=== PATIENT | female | born 1975 | race Caucasian/White ===

== ENCOUNTER → 2016-07-06 | Outpatient (CLI) | payer OTHER ==
[~2016-07-06] MED LIST: BENADRYL25 MG PO; ENOXAPARIN30 MG/0.1 INJECTION; ENOXAPARIN40 MG/0.1 SUBQ; GAS RELIEF80 MG PO; NOHOMEMEDICATIONS; NORCO 5-325 TA1 EACH PO; TYLENOL WITH CO1 TA1 PO
== END ==
LOC: CAT 09:06
DX: Z13.6 Encounter for screening for cardiovascular disorders (principal)

== ENCOUNTER 2017-06-21 09:15 | Emergency (ER) | payer BC, OTHER ==
[~2017-06-21] VITALS: Ht 162.6 cm; Wt 81.7 kg
[2017-06-21 10:14] LABS: HEMATOCRIT 40.6 % (37.0-47.0); HEMOGLOBIN 13.4 gm/dL (12.0-15.0); MCH 28.2 pg (26.0-34.0); MCHC 33.1 g/dL (28.0-37.0); MCV 85.3 fL (80.0-100.0); RBC 4.76 mil/uL (4.20-5.00); RDW 12.8 % (10.5-14.5); WBC 3.2 thou/uL (4.0-11.0)
[2017-06-21] MEDS ORDERED: AUGMENTIN 875-1 EACH PO (11:29)
[2017-06-21] MEDS ORDERED: NAPROSYN500 MG PO (11:30)
[2017-06-21 11:46] VITALS: BP 108/70
== END 2017-06-21 11:46 | disposition home or self-care (01) ==
LOC: ER 09:15
PROVIDERS: Emergency Medicine
DX: S61.052A Open bite of left thumb without damage to nail, initial encounter (principal); W55.01XA Bitten by cat, initial encounter; Z98.890 Other specified postprocedural states; Z87.891 Personal history of nicotine dependence; Y93.89 Activity, other specified; Y92.89 Other specified places as the place of occurrence of the external cause; Y99.8 Other external cause status

== ENCOUNTER → 2017-11-30 | Outpatient (CLI) | payer BC, OTHER ==
[~2017-11-30] MED LIST changes: +AUGMENTIN 875-1 EACH PO; +NAPROSYN500 MG PO
== END ==
LOC: ULTRA 07:32
DX: N28.1 Cyst of kidney, acquired (principal); K82.9 Disease of gallbladder, unspecified

== ENCOUNTER 2018-03-15 15:23 | Emergency (ER) | payer BC, OTHER ==
[~2018-03-15] VITALS: Ht 160 cm; Wt 81.7 kg
--- NOTE | ~2018-03-15 | EKG ---
[address] [employer] [place] [address] ELECTROCARDIOGRAM REPORT Name: NELSON MACIAS Room #: [id number] Admission: 03/15/18 Attend Phys: Discharge: 03/15/18 Date of : 75 Report #: [id number] THIS REPORT FOR: //name// [facility] ED Test Date: 2018-03-15 Test Time: 15:35:15 Pat Name: NELSON MACIAS Department: Room: Gender: F Assistant Finance Director: JATINDER : 1975 Requested By: Bryant Calderon Order Number: [id number] MD: Aries Gonzáles Measurements Intervals [place] Rate: 59 P: 73 NC: 139 QRS: 33 QRSD: 88 T: 14 QT: 408 QTc: 405 Interpretive Statements Sinus bradycardia Otherwise normal tracing Compared to ECG 05/07/2011 20:20:27 No significant change was found Electronically Signed On 03-16-2018 10:09:17 CDT by Aries Gonzáles [email or web address] <ELECTRONICALLY SIGNED> By: Aries Gonzáles MD, FACC 03/16/18 [id number] Aries Gonzáles MD, FACC /EPI
[2018-03-15 15:56] LABS: ABSOLUTE NEUTROPHILS 2.3 thou/uL (1.4-8.2); BASOPHILS 1.2 % (0.0-2.0); EOSINOPHILS 2.8 % (0.0-3.0); HEMATOCRIT 41.3 % (37.0-47.0); HEMOGLOBIN 13.8 gm/dL (12.0-15.0); LYMPHOCYTES 36.7 % (24.0-44.0); MCH 28.8 pg (26.0-34.0); MCHC 33.5 g/dL (28.0-37.0); MONOCYTES 7.6 % (1.0-8.0); PLATELET COUNT 264 thou/uL (150-400); POLYS 51.7 % (36.0-66.0); RDW 13.3 % (10.5-14.5); WBC 4.5 thou/uL (4.0-11.0)
[2018-03-15 16:06] LABS: ANION GAP 5 mmol/L (7-16); BUN 13 mg/dL (7-18); CALCIUM 9.1 mg/dL (8.5-10.1); CHLORIDE 106 mmol/L (98-107); CO2 28 mmol/L (21-32); GLUCOSE 92 mg/dL (74-106); POTASSIUM 3.6 mmol/L (3.5-5.1); SODIUM 139 mmol/L (136-145)
[2018-03-15 16:15] LABS: TROPONIN-I <0.06 ng/mL (<0.06)
[2018-03-15] MEDS ORDERED: PEPCID20 MG PO (16:50)
== END 2018-03-15 17:15 | disposition home or self-care (01) ==
LOC: ER 15:23
PROVIDERS: Physician Assistant
DX: R07.89 Other chest pain (principal); Z87.891 Personal history of nicotine dependence; Z98.890 Other specified postprocedural states

== ENCOUNTER → 2018-03-19 | Outpatient (CLI) | payer BC, OTHER ==
[~2018-03-19] MED LIST changes: +PEPCID20 MG PO
== END ==
LOC: ULTRA 08:29
DX: N28.1 Cyst of kidney, acquired (principal); K21.9 Gastro-esophageal reflux disease without esophagitis

== ENCOUNTER → 2019-07-15 | Outpatient (CLI) | payer BC, OTHER | LOC: CAT 10:01 | DX: J01.10 Acute frontal sinusitis, unspecified (principal) ==

== ENCOUNTER → 2020-08-19 | Outpatient (CLI) | payer OTHER | LOC: RAD 14:18 | PROVIDERS: ATTEND Nurse Practitioner | DX: M47.816 Spondylosis without myelopathy or radiculopathy, lumbar region (principal); M25.78 Osteophyte, vertebrae; M79.605 Pain in left leg ==